=== PATIENT | male | born 1980 | race African-American/Black ===

== ENCOUNTER 2023-08-31 19:18 | Emergency (ER) | payer BC ==
[~2023-08-31] VITALS: Ht 182.9 cm; Wt 73.0 kg
[2023-08-31 19:24] VITALS: TEMP 98.1; O2SAT 99
[2023-08-31 20:00] LABS: BASOPHILS % 0.8 % (0.0-2.0); DIFFERENTIAL COMMENT 0; EOSINOPHILS % 1.6 % (0.0-5.0); HEMATOCRIT. 45.8 % (42.0-52.0); HEMOGLOBIN. 15.5 g/dL (14.0-18.0); LYMPHOCYTES % 13.5 % (20.0-50.0); MEAN CORPUSCULAR HEMOGLOBIN 26.6 pg (28.0-32.0); MEAN CORPUSCULAR HGB CONC 33.9 g/dL (31.0-37.0); MEAN CORPUSCULAR VOLUME 78.6 fL (80.0-94.0); MONOCYTES % 8.5 % (2.0-8.0); NEUTROPHILS % 75.6 % (40.0-76.0); PLATELET 294 x1000/uL (130-400); RED BLOOD CELL COUNT 5.83 mill/uL (4.7-6.1); RED CELL DISTRIBUTION WIDTH 14.7 % (11.6-14.6); WHITE BLOOD COUNT 8.1 x1000/uL (4.5-11.0)
[2023-08-31 20:11] LABS: INR 1.1; PROTHROMBIN TIME 11.9 sec (9.6-11.0)
[2023-08-31 20:16] LABS: ALANINE AMINOTRANSFERASE 13 IU/L (10-49); ALBUMIN 4.3 g/dL (3.2-4.8); ASPARTATE AMINOTRANSFERASE 20 IU/L (<34); BILIRUBIN TOTAL 0.7 mg/dL (0.1-1.0); CALCIUM 9.4 mg/dL (8.7-10.4); CARBON DIOXIDE 22 mEq/L (21-32); CHLORIDE 104 mEq/L (98-107); CREATININE 0.9 mg/dL (0.6-1.3); GLUCOSE 117 mg/dL (70-105); POTASSIUM 3.4 mEq/L (3.5-5.1); PROTEIN TOTAL 8.1 g/dL (6.0-8.3); SODIUM 139 mEq/L (136-145); UREA NITROGEN BLOOD 7 mg/dL (9-23)
[2023-08-31] MEDS: MORPHINE SULFATE 4 MG/ML CPJ (NOT FOR IM USE) IV STA (20:20)
[2023-08-31] MEDS ORDERED: ONDANSETRON 4MG ODT PO ONE (20:30)
[2023-08-31] MEDS ORDERED: MORPHINE SULFATE 4 MG/ML CPJ (NOT FOR IM USE) IV NR (20:30)
[2023-08-31] MEDS ORDERED: MORPHINE SULFATE 4 MG/ML CPJ (NOT FOR IM USE) IV ONE (20:30)
[2023-08-31] MEDS: ONDANSETRON HCL 4MG/2ML INJ IV ONE (20:36)
[2023-08-31] MEDS ORDERED: HALOPERIDOL LACTATE 5MG/ML VIAL IM ONE (21:00)
[2023-08-31] MEDS: HYDRALAZINE 20MG/ML VIAL IV ONE (23:25)
[2023-08-31] MEDS ORDERED: HYDRALAZINE 20MG/ML VIAL IV NR (23:30)
[2023-08-31] MEDS ORDERED: VALS1TAB72 MT (23:32)
[2023-08-31] MEDS: ONDANSETRON 4MG ODT PO NR (23:40)
[2023-08-31] MEDS: HALOPERIDOL LACTATE 5MG/ML VIAL IM NR (23:41)
[2023-08-31 23:52] VITALS: BP 161/113; PULSE 91; RESP 12
== END 2023-09-01 00:06 | disposition home or self-care (01) ==
LOC: ER 19:18
DX: R10.9 Unspecified abdominal pain (principal); I16.0 Hypertensive urgency; F12.90 Cannabis use, unspecified, uncomplicated; F19.90 Other psychoactive substance use, unspecified, uncomplicated; Z85.9 Personal history of malignant neoplasm, unspecified
CPT/HCPCS: 99285; 96374; 96375; 80053; 83605; 83690; 85025; 85610; 36415; 96372; Q0162; J1630; J0360; J2405; J2270